=== PATIENT | female | born 1965 | race Caucasian/White ===

== ENCOUNTER 2023-12-08 15:28 | Outpatient (CLI) | payer MEDICAID | END 2023-12-08 23:59 | disposition home or self-care (01) | LOC: MRI 15:28 | PROVIDERS: ATTEND Orthopaedic Surgery | DX: S83.231A Complex tear of medial meniscus, current injury, right knee, initial encounter (principal); S83.271A Complex tear of lateral meniscus, current injury, right knee, initial encounter; M11.261 Other chondrocalcinosis, right knee; M22.41 Chondromalacia patellae, right knee; M25.561 Pain in right knee; X58.XXXA Exposure to other specified factors, initial encounter; Y93.89 Activity, other specified; Y92.89 Other specified places as the place of occurrence of the external cause; Y99.8 Other external cause status | CPT/HCPCS: 73721 ==